=== PATIENT | male | born 1955 | race Caucasian/White ===

== ENCOUNTER → 2020-12-14 10:06 | Outpatient (CLI) | payer MEDICARE, OTHER, SELFPAY ==
--- NOTE | ~2020-12-14 | MR_ITS ---
EXAMINATION: MR shoulder RT wo con DATE: 12/14/2020 10:57 INDICATION: Right rotator cuff injury presenting with right shoulder pain and limited range of motion TECHNIQUE: Magnetic resonance imaging (MRI) of the right shoulder was performed without intravenous c ontrast. Sequences included axial PD-weighted FS FSE, coronal oblique PD-weighted FS FSE, coronal obl ique T2-weighted FS FSE, sagittal PD-weighted FS FSE, and sagittal T1-weighted SE. COMPARISON: None. FINDINGS: Coracoacromial arch: The acromion undersurface is curved in morphology (type II). There is some remodeling of the undersur face of the acromion and tiny subacromial spurs along the lateral margin of the acromion. The coracoa cromial ligament is normal. Moderate acromioclavicular osteoarthritis. Rotator cuff: Large U-shaped full-thickness tear involving the entire supraspinatus tendon and anterior two thirds of the infraspinatus tendon which measures approximately 3.5 cm AP and medial to lateral. Mild tendin opathy of the retracted tear margin which is located between the apex of the humeral head and the lat eral rim of the glenoid. Moderate subscapularis tendinopathy with small partial-thickness tear involv ing the superolateral most lesser tuberosity footplate. There is a longitudinal intrasubstance split tear between the superficial portion of the tendon which remains attached to the intact transverse hu meral ligament and the portion of the tendon remaining attached to the lesser tuberosity. The long he ad of the biceps tendon is subluxed across the medial rim of the intertubercular groove and into the longitudinal split tear defect which extends approximately 2 cm medial from the lateral margin of the lesser tuberosity. There is medial retraction and mild fatty atrophy of the supraspinatus and infras pinatus muscle bellies. Biceps tendon, glenoid labrum and glenohumeral cartilage: Severe tendinopathy and longitudinal split tearing of the long head biceps tendon centered at the med ially subluxed junction of the intra-articular and extra-articular portion of the tendon. Normal ante rosuperior sublingual foramen and subtle labral sulcus and extends posteriorly to the 12:00 position. Remainder of the labrum appears normal. Mild partial thickness cartilage loss with smooth chondral s urface along the cephalad third of the glenoid. Additional partial thickness cartilage loss with smoo th chondral surface along the posterior superior aspect of the humeral head which abuts the undersurf yesi of the acromion. Fluid: Small glenohumeral joint effusion which extends to the full-thickness rotator cuff tear defect to com municate with additional small amount of fluid in the subacromial/subdeltoid bursa. No loose osteocho ndral bodies. Bones: There is cephalad subluxation of the humeral head with respect to the glenoid with narrowing of the s ubacromial space where there is [id number] cartilage apposition resulting from the full-thickness r otator cuff tear. No fracture or pathologic marrow replacing process. IMPRESSION: 1. Large full-thickness tear along the greater tuberosity involving the entire supraspinatus and ante rior two thirds of the infraspinatus tendon. 2. Moderate subscapularis tendinopathy and small partial-thickness tear and extensive longitudinal sp lit tear allowing medial subluxation of the long head biceps tendon across the medial rim of the inte rtubercular groove and into the split tear defect. 3. Severe tendinopathy and longitudinal split tearing of the subluxed long head biceps tendon. 4. Mild glenohumeral and moderate acromioclavicular osteoarthritis. Reviewed, dictated and finalized at location A.
== END ==
PROVIDERS: Visit Provider Internal Medicine
DX: S43.421A Sprain of right rotator cuff capsule, initial encounter (principal); X58.XXXA Exposure to other specified factors, initial encounter; M19.011 Primary osteoarthritis, right shoulder
CPT/HCPCS: 73221

== ENCOUNTER 2020-12-31 17:23 | Emergency (ER) | payer MEDICARE, OTHER, SELFPAY ==
--- NOTE | ~2020-12-31 | XR_ITS ---
EXAMINATION: XR finger 2nd LT min 2V DATE: 12/31/2020 17:53 INDICATION: Left hand second digit injury. TECHNIQUE: 4 views of left hand second digit were obtained. COMPARISON: None. FINDINGS: Bone alignment is normal. There is a nondisplaced oblique fracture of tuft of second distal phalanx. There is mild osteoarthritis of second distal interphalangeal joint and moderate osteoarthr itis of second proximal interphalangeal joint. IMPRESSION: 1. Nondisplaced oblique fracture of tuft of second distal phalanx. 2. Polyarticular osteoarthritis. Reviewed, dictated and finalized at location A.
--- NOTE | 2020-12-31 17:28 | ED.UPPEXIN ---
HPI - Extremity Injury (Upper) General Chief Complaint: Extremity Injury, Upper Stated Complaint: smashed finger Time Seen by Provider: 12/31/20 17:28 Source: patient and RN notes reviewed Mode of arrival: ambulatory Limitations: no limitations History of Present Illness HPI narrative: 65-year-old male states he got his finger caught in hitch. complaint: injury to: left and finger Onset (ago): minute(s) (10) Other Extremity Injury: Left: fingers (Index) Other injuries: none Handedness: right Place: home Severity: moderate Relieving factors: movement Exacerbating factors: movement of extremity Context: crush Associated symptoms: denies other symptoms Treatments prior to arrival: bandage Related Data Home Medications Medication Instructions Recorded Confirmed amlodipine 10 mg PO DAILY 12/31/20 12/31/20 aspirin [Aspir-81] 81 mg PO DAILY 12/31/20 12/31/20 atorvastatin 40 mg PO DAILY 12/31/20 12/31/20 finasteride 5 mg PO DAILY 12/31/20 12/31/20 losartan-hydrochlorothiazide 1 tablet PO DAILY 12/31/20 12/31/20 Allergies Allergy/AdvReac Type Severity Reaction Status Date / Time No Known Allergies Allergy Verified 12/31/20 17:47 Review of Systems Review of Systems: All systems reviewed & are unremarkable except as noted in HPI and below PMFSH Past Medical History Medical History (Updated 12/31/20 @ 18:24 by Cali Gomez MD) History of prostate cancer Hyperlipidemia Hypertension Surgical History Surgical History (Updated 12/31/20 @ 18:20 by Cali Gomez MD) H/O removal of cyst Exam Const: General: healthy appearing and no acute distress Nutritional Appearance: well nourished and obese centrally obese Orientation/consciousness: patient oriented x3 HENMT: Head: normal to inspection Ears: external ears normal Eyes: Conjunctivae: conjunctivae normal Pupils: Equal, round and reactive pupils present EOM: EOMs intact bilaterally Neck: Neck: normal visual inspection Resp: Effort & Inspection: normal respiratory effort Auscultation: clear to auscultation bilaterally Cardio: Rate: regular rate Rhythm: regular rhythm GI: GI Palp: Yes Soft to palpation and No Tenderness to palpation present (GI) Auscultation: normal bowel sounds Back/Spine/Pelvis: Cervical Spine: cervical ROM normal Thoracic/Lumbar Spine: thoraco-lumbar ROM normal Skin: General skin exam: normal color Rashes: no rashes Wounds: wounds noted laceration left volar 2nd finger size (2 cm) Neuro: General: patient oriented x3, moves all extremities and no focal motor deficits Speech: normal speech Gait exam (Neuro): Normal gait present Extrem: General: normal to inspection Left upper extremity: hand tenderness of the 2nd digit at the distal phalanx and at the nailbed, normal ROM of fingers and laceration 2nd digit ulnar aspect distal Psych: Appearance: grossly normal and well kempt Mental Status: mental status grossly normal Affect: normal affect Attitude: cooperative Thought content: Yes Normal thought content present Course Vital Signs Vital signs: Vital Signs Temperature 36.9 C 12/31/20 17:35 Pulse Rate 109 H 12/31/20 17:35 Respiratory Rate 20 12/31/20 17:35 Blood Pressure 134/94 H 12/31/20 17:35 Pulse Oximetry 96 12/31/20 17:35 Temperature 36.9 C 12/31/20 17:35 Pulse Rate 109 H 12/31/20 17:35 Respiratory Rate 16 12/31/20 18:32 Blood Pressure 134/94 H 12/31/20 17:35 Pulse Oximetry 96 12/31/20 17:35 Procedures Laceration Laceration 1: Date: 12/31/20 Site: hand Side (If applicable): left Description: linear and stellate Depth: simple, single layer Local Anesthetic: lidocaine 1% Amount of anesthesia used (mL): 5 Pre-repair: wound explored and irrigated ====== Skin Level ====== Skin layer closed with: nylon Size (cm): 4-0 Number of sutures: 7 Technique: running ====== Subcutaneous Layer
[2020-12-31 17:35] VITALS: BP 134/94; PULSE 109; RESP 20; TEMP 36.9; O2SAT 96
[2020-12-31] MEDS: TETANUS,DIPHTHERIA,AC PERTUSSIS ADULT 0.5 ML (ADACEL) IM (17:46)
[2020-12-31 18:32] VITALS: RESP 16
== END 2020-12-31 18:34 | disposition home or self-care (01) ==
PROVIDERS: Emergency Provider Emergency Medicine; PCP Internal Medicine
DX: S62.601A Fracture of unspecified phalanx of left index finger, initial encounter for closed fracture (principal); S61.311A Laceration without foreign body of left index finger with damage to nail, initial encounter; W22.8XXA Striking against or struck by other objects, initial encounter
CPT/HCPCS: 12001; 29130; 73140; 90471; 90715; 99283; 99284